=== PATIENT | male | born 1945 | race Caucasian/White ===

== ENCOUNTER → 2016-08-30 | Outpatient (CLI) | payer BC ==
--- NOTE | 2016-08-30 17:27 | RADRPT ---
PROCEDURE: XR right knee. CLINICAL INDICATION: Knee pain. TECHNIQUE: AP weightbearing, lateral weightbearing and sunrise views are available for review. COMPARISON: 05/15/2016 FINDINGS: There is a total knee replacement. There is no evidence of loosening of the prosthesis. The osseous structures are normal in mineralization, architecture and alignment No acute fracture or dislocation is seen.No osseous lesions are identified. The soft tissues are unremarkable . IMPRESSION: Unremarkable total knee replacement. RPTAT: [facility] .Arthur Maldonado MD, Date Time Electronically viewed and signed by .Arthur Maldonado MD, on 08/30/2016 17:26 .B/
== END | disposition home or self-care (01) ==
LOC: HKI 09:08
PROVIDERS: ATTEND Orthopaedic Surgery
DX: Z47.1 Aftercare following joint replacement surgery (principal); Z96.653 Presence of artificial knee joint, bilateral; Z96.641 Presence of right artificial hip joint
CPT/HCPCS: 73562; G0463

== ENCOUNTER → 2017-02-26 | Outpatient (CLI) | payer BC ==
--- NOTE | 2017-02-26 15:00 | RADRPT ---
PROCEDURE: X-RAY BILATERAL KNEE CLINICAL INDICATION: Total knee replacement. Status post surgery. Follow-up. TECHNIQUE: Three views of the right knee are available for review. COMPARISON: 11/07/2013. FINDINGS: Right-side: Since the prior examination, the patient has undergone a total knee replacement on the right side. The knee replacement is in good position and alignment without evidence of migration, l oosening, infection, or fracture. No bone destructive or erosive changes are seen. The bones are o steopenic. No acute fracture is identified. There is a small effusion. Heterotopic ossification. Left-side: Patient is status post total knee replacement. The knee replacement is in good position and alignment without evidence of migration, loosening, infection, or fracture. No bone destructiv e or erosive changes are seen. The bones are osteopenic. No acute fracture is identified. There i s a small effusion. There is heterotopic ossification within the posterior aspect of the soft tissue s of the knee - a common and expected findings. IMPRESSION: 1. Appropriate postoperative appearance of bilateral knee replacement. 2. No acute change and no evidence for fracture. RPTAT: XX .Vince Balbuena MD, Date Time Electronically viewed and signed by .Vince Balbuena MD, on 02/26/2017 15:00 .T/
--- NOTE | 2017-02-26 15:03 | RADRPT ---
PROCEDURE: XR RIGHT HIP. CLINICAL INDICATION: Postop. TECHNIQUE: 3 views of the right hip were performed. COMPARISON: None. FINDINGS: Patient is status post total hip replacement. The prosthesis is in good position and alignment with out evidence for migration or fracture. No evidence for prosthetic subluxation or dislocation. No osseous fracture is seen. No evidence for acute fracture. There are degenerative changes of the lower lumbar spine, both SI joints and left hip joint. IMPRESSION: 1. Appropriate appearance of right hip replacement. 2. No evidence for acute fracture. RPTAT: XX .Vince Balbuena MD, Date Time Electronically viewed and signed by .Vince Balbuena MD, on 02/26/2017 15:02 .T/
== END | disposition home or self-care (01) ==
LOC: HKI 09:10
PROVIDERS: ATTEND Orthopaedic Surgery
DX: Z47.89 Encounter for other orthopedic aftercare (principal); Z96.641 Presence of right artificial hip joint; Z96.653 Presence of artificial knee joint, bilateral
CPT/HCPCS: 73502; 73562; G0463